=== PATIENT | female | born 1965 | race Asian ===

== ENCOUNTER → 2017-12-01 | Outpatient (CLI) | payer OTHER ==
[~2017-12-01] MED LIST: CHOL100010 PO; CLOB-65 TOP; FLUT0.15; MULTTAB58 PO
--- NOTE | 2017-12-04 07:38 | MAMMOGRAPHY REPORT ---
BILATERAL DIGITAL SCREENING MAMMOGRAM TOMOSYNTHESIS WITH CAD: 12/01/2017 CLINICAL HISTORY: Routine screening. Patient has no complaints. TECHNIQUE: Breast tomosynthesis in addition to standard 2D mammography was performed. Current study was also evaluated with a Computer Aided Detection (CAD) system. COMPARISON: Comparison is made to exam dated: 10/06/2011 mammogram - [facility]. BREAST COMPOSITION: The tissue of both breasts is heterogeneously dense, which may obscure small mas ses. FINDINGS: There is a small cluster of calcifications within the left upper outer breast, for which s pot magnification views are recommended for further evaluation. One of the calcifications demonstrat es possible layering on the MLO view suggesting that the calcifications may represent milk of calcium . The remainder of both breasts are stable compared to the prior exam, without suspicious masses, calci fications, or areas of architectural distortion noted. IMPRESSION: ACR BI-RADS CATEGORY 0: INCOMPLETE EVALUATION: NEED ADDITIONAL IMAGING EVALUATION Left breast calcifications, for which additional imaging evaluation is recommended. The patient will be called to schedule an appointment. Approximately 10% of breast cancers are not detected with mammography. A negative mammographic report should not delay biopsy if a clinically suggestive mass is present. Sahra Paulson M.D. ah/:12/01/2017 09:16:47 Nursing Project Coordinator: Charito DAVIES(Cesar)(Levy), [facility] letter sent: Addl Imaging 0 BI-RADS Code: ACR BI-RADS Category 0: Incomplete Evaluation: Need Additional Imaging Evaluation
== END | disposition home or self-care (01) ==
LOC: C.MAMM 08:26
PROVIDERS: ATTEND Family Medicine
DX: Z12.31 Encounter for screening mammogram for malignant neoplasm of breast (principal); R92.1 Mammographic calcification found on diagnostic imaging of breast

== ENCOUNTER → 2017-12-13 | Outpatient (CLI) | payer OTHER ==
--- NOTE | 2017-12-13 15:24 | MAMMOGRAPHY REPORT ---
UNILATERAL LEFT DIGITAL DIAGNOSTIC MAMMOGRAM: 12/13/2017 CLINICAL HISTORY: 52-year-old woman called back from screening mammography for a new cluster of calci fications in the left upper outer quadrant. TECHNIQUE: Spot magnification left CC and ML views were obtained. COMPARISON: Comparison is made to exams dated: 12/01/2017 mammogram and 10/06/2011 mammogram - [facility]. BREAST COMPOSITION: The tissue of the left breast is heterogeneously dense, which may obscure small masses. FINDINGS: The spot magnification views of the left breast demonstrate a 5 mm grouping of approximatel y 5-7 microcalcifications in the upper outer middle one third of the left breast. On the cc view the y have a somewhat smudgy appearance. On the spot magnification ML view, at least 2 of the calcificat ions demonstrate tea-cupping, suggesting benign milk of calcium. When comparing to the prior availab le 2010 mammogram some of the calcifications are faintly visualized on the CC view, and have a smudgy appearance on that exam as well. No obvious associated mass or architectural distortion. The micro calcifications most likely represent benign milk of calcium, but given the increased conspicuity and not all of the calcifications layer, a short interval follow-up left diagnostic mammogram including s pot magnification views is recommended in 6 months. IMPRESSION: ACR-BI-RADS CATEGORY 3: PROBABLY BENIGN There is an increasingly conspicuous 5 mm cluster of calcifications in the left upper outer quadrant, and some of the calcifications demonstrate tea cupping on the spot magnification ML view suggesting benign milk of calcium. Given the increased conspicuity and the fact that not all of the calcificati ons demonstrate clear flattening or layering, a short interval follow-up left diagnostic mammogram in cluding spot magnification views is recommended to ensure stability in 6 months. These results and recommendations were discussed with the patient and her at the time of the exam. Approximately 10% of breast cancers are not detected with mammography. A negative mammographic report should not delay biopsy if a clinically suggestive mass is present. Monica Styles M.D. ay/:12/13/2017 09:33:51 Nipple Machine Operator: Kerry Oseguera, [facility] letter sent: Follow Up Recommended 3 BI-RADS Code: ACR-BI-RADS Category 3: Probably Benign
== END | disposition home or self-care (01) ==
LOC: C.MAMM 08:30
PROVIDERS: ATTEND Family Medicine
DX: R92.2 Inconclusive mammogram (principal); R92.1 Mammographic calcification found on diagnostic imaging of breast

== ENCOUNTER → 2017-12-20 | Outpatient (CLI) | payer OTHER ==
--- NOTE | 2017-12-20 11:32 | DIAGNOSTIC IMAGING REPORT ---
CHEST 2 VIEWS ROUTINE CLINICAL HISTORY: PALPABLE LYMPH NODE COMPARISON STUDY: No previous studies for comparison. FINDINGS: The heart is normal in size. 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 There is no failure. There is no focal pulmonary consolidation.[There is a 12 mm opacity in the infrahilar region on the lateral view. This is nonspecific but could represent a vascular summation. No corresponding nodule is visualized on the PA film. IMPRESSION: 1. 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 No evidence of focal pulmonary consolidation 3. 12 mm opacity visualized in the lateral view in the infrahilar region. While likely representing a vascular summation, a true nodule cannot be excluded. 4. Given the above-mentioned findings, CT scanning might be considered in follow-up. Electronically signed by: Josue Mitchell M.D. 12/20/2017 11:31 AM Dictated Date/Time: 12/20/2017 11:26 AM
== END | disposition home or self-care (01) ==
LOC: C.RAD1850 11:18
PROVIDERS: ATTEND Obstetrics & Gynecology
DX: R59.9 Enlarged lymph nodes, unspecified (principal)

== ENCOUNTER → 2017-12-20 | Outpatient (CLI) | payer OTHER | END | disposition home or self-care (01) | LOC: C.PAPS 14:13 | PROVIDERS: ATTEND Obstetrics & Gynecology | DX: Z12.4 Encounter for screening for malignant neoplasm of cervix (principal) ==

== ENCOUNTER → 2018-06-13 | Outpatient (CLI) | payer OTHER ==
--- NOTE | 2018-06-13 13:52 | MAMMOGRAPHY REPORT ---
UNILATERAL LEFT DIGITAL DIAGNOSTIC MAMMOGRAM TOMOSYNTHESIS WITH CAD: 06/13/2018 CLINICAL HISTORY: 53-year-old woman presents for follow-up in the left breast with particular attenti on to a conspicuous grouping of probably benign calcifications in the upper outer anterior breast. TECHNIQUE: Left breast CC and MLO 2D and tomosynthesis images, spot magnification left CC and ML view s were obtained. Current study was also evaluated with a Computer Aided Detection (CAD) system. COMPARISON: Comparison is made to exams dated: 12/13/2017 mammogram, 12/01/2017 mammogram, and 1 mammogram - [facility]. BREAST COMPOSITION: The tissue of left breast is heterogeneously dense, which may obscure small tiara s. FINDINGS: The glandular pattern of the left breast is similar to prior mammograms. No new suspicious masses, asymmetries or areas of architectural distortion are seen. There is a grouping of calcifica tions in the upper outer anterior left breast that are somewhat smudgy in the CC projection and demon strate layering in the ML projection, confirming benign milk of calcium. No new suspicious grouping or cluster of calcifications are identified. Recommend return to annual screening mammography schedu le due in November 2018. IMPRESSION: ACR BI-RADS CATEGORY 2: BENIGN The benign calcifications in the upper outer left breast demonstrate layering or tea cupping on the s pot magnification ML view confirming benign milk of calcium. There is no mammographic evidence of ma lignancy in the left breast. Return to annual mammogram screening schedule is recommended.(12/02/2018 ) The patient has been verbally notified of the results. Some breast cancers are not detected with mammography. A negative mammographic report should not david y biopsy if a clinically suggestive mass is present. Monica Styles M.D. ay/:06/13/2018 08:59:39 Contact Center Assistant: RT Alejandra(R)(M), [facility] letter sent: Normal 1/2 BI-RADS Code: ACR BI-RADS Category 2: Benign
== END | disposition home or self-care (01) ==
LOC: C.MAMM 08:32
PROVIDERS: ATTEND Family Medicine
DX: R92.1 Mammographic calcification found on diagnostic imaging of breast (principal)

== ENCOUNTER 2023-01-27 14:17 | Observation (INO) ==
--- NOTE | 2023-01-27 14:53 | Emergency Department Note ---
Impression & Plan Transient global amnesia, Hypokalemia, Elevated blood pressure reading without diagnosis of hypertension ED Provider Note NAME: RENÉE BILL AGE: 57 SEX: F : 1965 ARRIVES VIA: Walk-In INFORMANT: Patient ED PROVIDER(S): Hieu Pina DO CHIEF COMPLAINT: confusion HPI: Patient is a 57-year-old female who presents the ER for confusion. notes that this morning she woke up she was completely fine and in her baseline. Around 9 AM she went outside after eating. He did not catch back up with her until 11 when he noticed that she was confused and did not know what she was doing. She remembers her past but cannot remember today's events. She denies any headache or change in vision. No chest pain or shortness of breath. No nausea, vomiting, or diarrhea. No weakness or numbness in the arms or legs. No other exacerbating or remitting factors. Does have a previous history of a meningioma that was removed via surgery. She saw her PCP and was referred in here today PAST MEDICAL HISTORY:See Below PAST SURGICAL HISTORY:See Below FAMILY HISTORY:See Below SOCIAL HISTORY:See Below HOME MEDICATIONS:See Below ALLERGIES:See Below VITALS:See Below PHYSICAL EXAMINATION: GENERAL: Sitting up in bed, alert, well appearing, well nourished, no distress, non-toxic EYE EXAM: normal conjunctiva. PERRL and EOM's intact. OROPHARYNX: no exudate, no erythema, lips, buccal mucosa, and tongue normal and mucous membranes are moist NECK: supple, no nuchal rigidity, no adenopathy, non-tender LUNGS: Clear to auscultation. Normal chest wall mechanics HEART: no murmurs, S1 normal and S2 normal ABDOMEN: abdomen soft, non-tender, normo-active bowel sounds, no masses, no rebound or guarding. BACK: Back is symmetrical on inspection and there is no deformity, no midline tenderness, no CVA tenderness. SKIN: no rashes and no bruising UPPER EXTREMITIES: upper extremities are grossly normal. LOWER EXTREMITIES: No pitting edema. NEURO EXAM: Oriented to person place and year but difficulty remembering events of earlier today. Recalls history of where she was born as well as other historical dates within the family, cranial nerves II-XII intact, normal speech, no weakness of arms, no weakness of legs. No drift. Finger to nose intact. Gross sensation intact. MEDICAL DECISION MAKING: Patient is a 57-year-old female who was referred in by PCP for the above-stated complaint. IV was established blood work was obtained. Labs show no significant leukocytosis or anemia. INR unremarkable. BMP with mild hypokalemia 3.2. LFTs bilirubin was unremarkable. Troponin negative. TSH unremarkable. COVID-negative. CT angios of the head neck showed no acute p athology. Patient was completely neurologically intact. She does have loss of today's events but does remember everything beyond today. Do favor this most consistent with TGA. external records were reviewed and discussed with her PCP via telephone. Triage Nursing notes reviewed. Limited review of prior medical records performed Vital Signs: reviewed and remarkable for no significant abnormalities Differential diagnosis: Differential diagnoses includes but is not limited to toxic, metabolic, infectious, traumatic, cardiac, neurologic, hematologic, psychiatric and inflammatory etiologies. ER treatment provided: See below Diagnostics interpreted by me include EKG and cardiac monitoring as listed below: -Cardiac Monitoring: An order was placed for continuous cardiac monitoring. The monitor shows a rate of 66 with sinus rhythm. -ECG: Sinus rhythm rate of 68 Normal axis No PVCs QTc 467 -Laboratory studies:Interpreted by me as stated above in MDM and shown below. Imaging studies: Xrays: As interpreted by me: Portable AP upright 1 view of the chest shows no focal trait CTs show: CT angios of the head and neck were negative Consultation(s): As described in MDM Procedures:none Critical Care: None Past Med/Surg History Medical History (Updated 01/27/23 @ 21:08 by Hieu Pina DO) H/O brain tumor surgical removal 18 years ago Surgical History (Updated 01/27/23 @ 17:23 by Heydi Tony PA-C) H/O brain surgery H/O craniotomy supratentorial excision of meningioma H/O partial thyroidectomy H/O: History of hysteroscopy with D&C Family History (Updated 12/21/19 @ 16:24 by Georgina Hernandez) Mother Cancer Denies family history of Ovarian cancer Breast cancer Colorectal cancer Social History (Updated 12/21/19 @ 16:23 by Georgina Hernandez) Smoking Status: Never smoker Second Hand Exposure: Yes; Do You Dip or Chew Tobacco: No; Tobacco Cessation Education Requested by Patient: No Hx Alcohol Use: No Hx Substance Use: No Preferred Language: Mandarin Polish Animal Caretaker Required: No Beliefs That Will Affect Care: None Current Living Situation: Spouse Current Living Situation Comment: Other Information That Helps Us Care for You: No Feels Safe at Home: No Is there a partner from a previous relationship who is making you feel unsafe now?: No Any Concerns about Your Family Situation: No Would You Like to Speak to Someone About Your Situation: No Safety Concerns: Feels Safe At This Time Assistive Devices: Glasses Allergies Allergies Allergy/AdvReac Type Severity Reaction Status Date / Time No Known Allergies Allergy Verified 03/19/19 08:32 Home Meds Home Medications Medication Instructions Recorded Confirmed betamethasone dipropionate 0.05 % topical .Apply a small amount to 12/21/19 12/21/19 topical cream vulva, massage in for 20 seconds. Do this once a week. cholecalciferol (vitamin D3) PO 12/21/19 12/21/19 clobetasol 0.05 % topical ointment topical .Apply small amount to 12/21/19 12/21/19 affected area once daily for two weeks, then twice a week. fluticasone propionate 50 1 sprays intranasal DAILY 12/21/19 12/21/19 mcg/actuation nasal spray,suspension fluticasone propionate 50 intranasal 12/21/19 mcg/actuation nasal spray,suspension multivitamin 1 tab PO DAILY 12/21/19 Results & Data (ED) Vital Signs Vital Signs - 24 hr 01/27/23 14:18 01/27/23 14:38 01/27/23 15:04 Temperature 36.7 C Temperature Source Temporal Artery Scan Pulse Rate 73 60 Pulse Rate [Apical] 66 Pulse Rate from SpO2 Sensor Pulse Rhythm [Apical] Regular Pulse Strength [Apical] Normal Respiratory Rate 20 18 Respiratory Effort / Characteristics Non-Labored Spontaneous Non-Labored Spontaneous Respiratory Depth Normal Normal Respiratory Pattern Regular Blood Pressure 140/82 Blood Pressure [Right Arm] 138/83 Blood Pressure Mean 101 Blood Pressure Mean [Right Arm] 101 Blood Pressure Position [Right Arm] Pulse Oximetry 97 99 Oxygen Delivery Method Room Air Room Air Sepsis Recent Fever Within 48 Hours No Sepsis New/Unexplained Change in Mental Status No Sepsis Action Taken by Nursing No Action Required 01/27/23 15:04 01/27/23 16:58 01/27/23 15:10 Temperature Temperature Source Pulse Rate 62 60 Pulse Rate [Apical] 73 Pulse Rate from SpO2 Sensor 61 60 Pulse Rhythm [Apical] Regular Pulse Strength [Apical] Normal Respiratory Rate 21 17 17 Respiratory Effort / Characteristics Non-Labored Spontaneous Respiratory Depth Normal Respiratory Pattern Regular Blood Pressure Blood Pressure [Right Arm] 138/89 Blood Pressure Mean Blood Pressure Mean [Right Arm] 105 Blood Pressure Position [Right Arm] Lying Pulse Oximetry 100 98 99 Oxygen Delivery Method Room Air Sepsis Recent Fever Within 48 Hours Sepsis New/Unexplained Change in Mental Status Sepsis Action Taken by Nursing 01/27/23 15:20 01/27/23 15:30 01/27/23 15:30 Temperature Temperature Source Pulse Rate 66 65 Pulse Rate [Apical] Pulse Rate from SpO2 Sensor 64 68 Pulse Rhythm [Apical] Pulse Strength [Apical] Respiratory Rate 19 21 Respiratory Effort / Characteristics Respiratory Depth Respiratory Pattern Blood Pressure 141/87 H Blood Pressure [Right Arm] Blood Pressure Mean 105 Blood Pressure Mean [Right Arm] Blood Pressure Position [Right Arm] Pulse Oximetry 100 99 Oxygen Delivery Method Sepsis Recent Fever Within 48 Hours Sepsis New/Unexplained Change in Mental Status Sepsis Action Taken by Nursing 01/27/23 15:50 01/27/23 16:00 01/27/23 16:00 Temperature Temperature Source Pulse Rate 73 70 Pulse Rate [Apical] Pulse Rate from SpO2 Sensor 72 75 Pulse Rhythm [Apical] Pulse Strength [Apical] Respiratory Rate 20 14 Respiratory Effort / Characteristics Respiratory Depth Respiratory Pattern Blood Pressure 120/85 Blood Pressure [Right Arm] Blood Pressure Mean 96 Blood Pressure Mean [Right Arm] Blood Pressure Position [Right Arm] Pulse Oximetry 97 99 Oxygen Delivery Method Sepsis Recent Fever Within 48 Hours Sepsis New/Unexplained Change in Mental Status Sepsis Action Taken by Nursing 01/27/23 16:10 01/27/23 16:20 01/27/23 16:30 Temperature Temperature Source Pulse Rate 76 79 Pulse Rate [Apical] Pulse Rate from SpO2 Sensor 76 78 Pulse Rhythm [Apical] Pulse Strength [Apical] Respiratory Rate 21 18 Respiratory Effort / Characteristics Respiratory Depth Respiratory Pattern Blood Pressure 138/89 Blood Pressure [Right Arm] Blood Pressure Mean 105 Blood Pressure Mean [Right Arm] Blood Pressure Position [Right Arm] Pulse Oximetry 98 98 Oxygen Delivery Method Sepsis Recent Fever Within 48 Hours Sepsis New/Unexplained Change in Mental Status Sepsis Action Taken by Nursing 01/27/23 16:30 01/27/23 16:40 01/27/23 16:50 Temperature Temperature Source Pulse Rate 72 69 71 Pulse Rate [Apical] Pulse Rate from SpO2 Sensor 70 70 75 Pulse Rhythm [Apical] Pulse Strength [Apical] Respiratory Rate 16 20 20 Respiratory Effort / Characteristics Respiratory Depth Respiratory Pattern Blood Pressure Blood Pressure [Right Arm] Blood Pressure Mean Blood Pressure Mean [Right Arm] Blood Pressure Position [Right Arm] Pulse Oximetry 99 98 96 Oxygen Delivery Method Sepsis Recent Fever Within 48 Hours Sepsis New/Unexplained Change in Mental Status Sepsis Action Taken by Nursing 01/27/23 17:00 01/27/23 17:00 01/27/23 17:10 Temperature Temperature Source Pulse Rate 71 80 Pulse Rate [Apical] Pulse Rate from SpO2 Sensor 71 79 Pulse Rhythm [Apical] Pulse Strength [Apical] Respiratory Rate 20 19 Respiratory Effort / Characteristics Respiratory Depth Respiratory Pattern Blood Pressure 150/91 H Blood Pressure [Right Arm] Blood Pressure Mean 110 Blood Pressure Mean [Right Arm] Blood Pressure Position [Right Arm] Pulse Oximetry 97 96 Oxygen Delivery Method Sepsis Recent Fever Within 48 Hours Sepsis New/Unexplained Change in Mental Status Sepsis Action Taken by Nursing Laboratory Data 01/27/23 14:34 01/27/23 14:34 Lab Results 01/27/23 01/27/23 01/27/23 Range/Units 14:34 14:34 14:34 WBC 7.81 (4.8-10.8) K/ul RBC 4.57 (4.20-5.40) M/uL Hgb 13.6 (12.0-16.0) g/dl Hct 40.5 (37.0-47.0) % MCV 88.6 (80.0-100.0) fL MCH 29.8 (25.0-34.0) pg MCHC 33.6 (32.0-36.0) g/dL RDW Std Deviation 41.2 (36.4-46.3) fL RDW Coeff of Ezio 12.7 (11.5-14.5) % Plt Count 232 (130-400) K/uL MPV 9.5 (9.4-12.4) fL Immature Gran % (Auto) 0.1 % Neut % (Auto) 70.8 % Lymph % (Auto) 20.0 % [place] % (Auto) 7.2 % Eos % (Auto) 1.0 % Baso % (Auto) 0.9 % Neut # (Auto) 5.53 (1.40-6.50) K/uL Lymph # (Auto) 1.56 (1.2-3.4) K/uL [place] # (Auto) 0.56 (0.11-0.59) K/uL Eos # (Auto) 0.08 (0-0.50) K/uL Baso # (Auto) 0.07 (0-0.2) K/uL Immature Gran # (Auto) 0.01 (0.01-0.20) K/uL PT 11.4 (9.0-12.0) Seconds INR 1.1 (0.9-1.1) APTT 29.0 (21.0-31.0) Seconds PTT Ratio 1.1 Sodium 140 (136-145) mmol/L Potassium 3.2 L (3.5-5.1) mmol/L Chloride 106 (98-107) mmol/L Carbon Dioxide 29 (21-32) mmol/L Anion Gap 5 (3-11) BUN 10 (6-23) mg/dl Creatinine 0.60 (0.6-1.2) mg/dl Est Cr Clr Drug Dosing 90.4 ml/min Est GFR ( Amer) 118.1 ml/min Est GFR (Non-Af Amer) 101.9 ml/min BUN/Creatinine Ratio 16.7 (10-20) Glucose 86 (70-99(Fasting)) mg/dl POC Glucose (70-99) mg/dl Calcium 9.2 (8.6-10.3) mg/dl Magnesium 2.2 (1.7-2.4) mg/dl Total Bilirubin 1.0 (0.2-1.0) mg/dl AST 36 (13-39) U/L ALT 42 (7-52) U/L Alkaline Phosphatase 59 (34-104) U/L Troponin I High Sens 3.1 (0-14) pg/ml Total Protein 8.0 (6.0-8.3) gm/dl Albumin 4.4 (3.4-5.0) gm/dl Globulin 3.6 (2.5-4.0) gm/dl Albumin/Globulin Ratio 1.2 (0.9-2) TSH (0.300-4.500) uIu/ml SARS-CoV-2, RNA, NAAT (NEGATIVE) 01/27/23 01/27/23 01/27/23 Range/Units 14:34 14:42 15:05 WBC (4.8-10.8) K/ul RBC (4.20-5.40) M/uL Hgb (12.0-16.0) g/dl Hct (37.0-47.0) % MCV (80.0-100.0) fL MCH (25.0-34.0) pg MCHC (32.0-36.0) g/dL RDW Std Deviation (36.4-46.3) fL RDW Coeff of Ezio (11.5-14.5) % Plt Count (130-400) K/uL MPV (9.4-12.4) fL Immature Gran % (Auto) % Neut % (Auto) % Lymph % (Auto) % [place] % (Auto) % Eos % (Auto) % Baso % (Auto) % Neut # (Auto) (1.40-6.50) K/uL Lymph # (Auto) (1.2-3.4) K/uL [place] # (Auto) (0.11-0.59) K/uL Eos # (Auto) (0-0.50) K/uL Baso # (Auto) (0-0.2) K/uL Immature Gran # (Auto) (0.01-0.20) K/uL PT (9.0-12.0) Seconds INR (0.9-1.1) APTT (21.0-31.0) Seconds PTT Ratio Sodium (136-145) mmol/L Potassium (3.5-5.1) mmol/L Chloride (98-107) mmol/L Carbon Dioxide (21-32) mmol/L Anion Gap (3-11) BUN (6-23) mg/dl Creatinine (0.6-1.2) mg/dl Est Cr Clr Drug Dosing ml/min Est GFR ( Amer) ml/min Est GFR (Non-Af Amer) ml/min BUN/Creatinine Ratio (10-20) Glucose (70-99(Fasting)) mg/dl POC Glucose 80 (70-99) mg/dl Calcium (8.6-10.3) mg/dl Magnesium (1.7-2.4) mg/dl Total Bilirubin (0.2-1.0) mg/dl AST (13-39) U/L ALT (7-52) U/L Alkaline Phosphatase (34-104) U/L Troponin I High Sens (0-14) pg/ml Total Protein (6.0-8.3) gm/dl Albumin (3.4-5.0) gm/dl Globulin (2.5-4.0) gm/dl Albumin/Globulin Ratio (0.9-2) TSH 1.530 (0.300-4.500) uIu/ml SARS-CoV-2, RNA, NAAT NEGATIVE (NEGATIVE) Administered Medications Discontinued Medications Gadobutrol (Gadobutrol 65ml Vial) 5.5 ml IV ONCE ONE Stop: 01/27/23 18:33 Last Admin: 01/27/23 18:25 Dose: 5.5 ml Documented By: ANASTASIIA Ioversol (Optiray 320 500ml) 102 ml IV ONCE ONE Stop: 01/27/23 15:40 Last Admin: 01/27/23 15:41 Dose: 102 ml Documented By: JUANCARLOS Potassium Chloride (Potassium Chloride Crtab 20 Meq Tabcr) 40 meq PO NOW STA Stop: 01/27/23 19:44 Last Admin: 01/27/23 20:34 Dose: 40 meq Documented By: TMG Imaging Data Radiologist's Impression: Chest X-Ray 01/27/23 14:25 XR chest 1V portable HISTORY: 57 years-old Female neuro deficit, acute stroke suspected acute strokelike symptoms COMPARISON: Chest radiograph 12/20/2017 TECHNIQUE: AP view of the chest FINDINGS: Cardiac silhouette is upper limits of normal in size. Developmental partial bony fusion of the anterior right first and second ribs. No pneumothorax, pleural effusion, airspace consolidation or pulmonary edema. Bones appear grossly intact. IMPRESSION: No acute process. ACT 112: Negative or not required by law. The above report was generated using voice recognition software. It may contain grammatical, syntax or spelling errors. Electronically signed by: Barney Sandoval M.D. 01/27/2023 3:[address] 01/27/23 14:[address] DOSE: HISTORY: Vision problems. neuro deficit, acute stroke suspected TECHNIQUE: Multiaxial CT images of the head were performed without the use of intravenous contrast. Automated exposure control was utilized for this study. A dose lowering technique was utilized adhering to the principles of ALARA. Comparison: Brain MRI 03/29/2018. Findings: The paranasal sinuses and mastoid air cells are clear. Postoperative changes consistent with prior left frontotemporal craniotomy with an overlying metallic plate. No acute calvarial fractures identified. The orbits are unremarkable. There is no mass, hematoma, midline shift, acute infarct. Encephalomalacia within the left anterior temporal lobe likely due to the postoperative changes. This results in ex vacuo dilatation of the lateral ventricle. Otherwise, the ventricles are normal in size. Impression: 1. No acute infarct or intracranial hemorrhage. 2. Postoperative changes and encephalomalacia identified within the left temporal lobe. This remains unchanged. ACT 112: Negative or not required by law. Electronically signed by: Rafat Centeno M.D. 01/27/2023 3:56 PM Head CTA 01/27/23 14:25 CT angio head w con, CT angio neck with con CLINICAL HISTORY: neuro deficit, acute stroke suspected TECHNIQUE: CT angiography of the head and neck was performed following intravenous administration of iodinated contrast. Coronal and sagittal MIPS were obtained from the axial data set and were submitted for review. Automated dose lowering techniques and/or adjustment according to patient size were utilized for this examination. All measurements were calculated based on NASCET criteria. CT DOSE: 1095.93 mGy.cm Comparison: Comparison is made to CT head 01/27/2023 FINDINGS: Homogeneous enlargement of the left thyroid gland noted. CTA Neck: Right aortic arch is seen with aberrant left subclavian artery. There is no significant atherosclerotic plaque in the aortic arch or the origins of the innominate, left common carotid, and left subclavian arteries. There is narrowing of the cavernous portion of the left internal carotid artery which likely represents a chronic finding. The right vertebral artery is dominant. CTA Head: The anterior and posterior cerebral circulations are patent. No hemodynamically significant stenosis, aneurysm, dissection, or arteriovenous malformation is shown. Left temporal postsurgical changes and encephalomalacia are partially seen. IMPRESSION: 1. Narrowing of the cavernous portion of the left internal carotid artery is likely chronic. 2. No occlusion, hemodynamically significant stenosis, aneurysm, dissection, or arteriovenous malformation in the major intracranial arteries. Assessment of stenosis of the internal carotid arteries is based on NASCET criteria. ACT 112: Negative or not required by law. Electronically signed by: Singh Solorio M.D. 01/27/2023 4:03 PM Neck CTA 01/27/23 14:25 CT angio head w con, CT angio neck with con CLINICAL HISTORY: neuro deficit, acute stroke suspected TECHNIQUE: CT angiography of the head and neck was performed following intravenous administration of iodinated contrast. Coronal and sagittal MIPS were obtained from the axial data set and were submitted for review. Automated dose lowering techniques and/or adjustment according to patient size were utilized for this examination. All measurements were calculated based on NASCET criteria. CT DOSE: 1095.93 mGy.cm Comparison: Comparison is made to CT head 01/27/2023 FINDINGS: Homogeneous enlargement of the left thyroid gland noted. CTA Neck: Right aortic arch is seen with aberrant left subclavian artery. There is no significant atherosclerotic plaque in the aortic arch or the origins of the innominate, left common carotid, and left subclavian arteries. There is narrowing of the cavernous portion of the left internal carotid artery which l ikely represents a chronic finding. The right vertebral artery is dominant. CTA Head: The anterior and posterior cerebral circulations are patent. No hemodynamically significant stenosis, aneurysm, dissection, or arteriovenous malformation is shown. Left temporal postsurgical changes and encephalomalacia are partially seen. IMPRESSION: 1. Narrowing of the cavernous portion of the left internal carotid artery is likely chronic. 2. No occlusion, hemodynamically significant stenosis, aneurysm, dissection, or arteriovenous malformation in the major intracranial arteries. Assessment of stenosis of the internal carotid arteries is based on NASCET criteria. ACT 112: Negative or not required by law. Electronically signed by: Singh Solorio M.D. 01/27/2023 4:03 PM Discharge Plan Visit Data Chief Complaint: Neuro Symptoms/Deficit Stated Complaint: LOSS OF MEMORY ED Provider: Hieu Pina Discharge Problem: Transient global amnesia, Hypokalemia, Elevated blood pressure reading without diagnosis of hypertension Patient Disposition: Admitted As Inpatient Discharge Instructions Interventions: ED Discharge Assessment Last Done: 01/27/23 19:20
[2023-01-27 14:57] LABS: Basophils # (auto) 0.07 K/uL (0-0.2); Basophils % (auto) 0.9 %; Eosinophils # (auto) 0.08 K/uL (0-0.50); Hematocrit (blood only) 40.5 % (37.0-47.0); Hemoglobin 13.6 g/dl (12.0-16.0); Immature Granulocytes # (auto) 0.01 K/uL (0.01-0.20); Immature Granulocytes % (auto) 0.1 %; Lymphocytes # (auto) 1.56 K/uL (1.2-3.4); Mean Corpuscular Hemoglobin 29.8 pg (25.0-34.0); Mean Corpuscular Hgb Conc 33.6 g/dL (32.0-36.0); Mean Corpuscular Volume 88.6 fL (80.0-100.0); Mean Platelet Volume 9.5 fL (9.4-12.4); Monocytes # (auto) 0.56 K/uL (0.11-0.59); Monocytes % (auto) 7.2 %; Neutrophils # (auto) 5.53 K/uL (1.40-6.50); Neutrophils % (auto) 70.8 %; Platelet Count 232 K/uL (130-400); RDW Coefficient of Variation 12.7 % (11.5-14.5); RDW Standard Deviation 41.2 fL (36.4-46.3); Red Blood Count 4.57 M/uL (4.20-5.40); White Blood Count 7.81 K/ul (4.8-10.8)
[2023-01-27 15:14] LABS: Albumin Globulin Ratio 1.2 (0.9-2); Albumin Level 4.4 gm/dl (3.4-5.0); BUN Creatinine Ratio 16.7 (10-20); Calcium 9.2 mg/dl (8.6-10.3); Creatinine Clr Calc Pharmacy 90.4 ml/min; Est GFR (African American) 118.1 ml/min; Est GFR (Non-African American) 101.9 ml/min; Globulin 3.6 gm/dl (2.5-4.0); Magnesium 2.2 mg/dl (1.7-2.4); Potassium 3.2 mmol/L (3.5-5.1)
[2023-01-27 15:19] LABS: Troponin I High Sensitivity 3.1 pg/ml (0-14)
[2023-01-27 15:24] LABS: INR 1.1 (0.9-1.1); Partial Thromboplastin Ratio 1.1; Prothrombin Time 11.4 Seconds (9.0-12.0)
--- NOTE | 2023-01-27 15:25 | XRay Report ---
XR chest 1V portable HISTORY: 57 years-old Female neuro deficit, acute stroke suspected acute strokelike symptoms COMPARISON: Chest radiograph 12/20/2017 TECHNIQUE: AP view of the chest FINDINGS: Cardiac silhouette is upper limits of normal in size. Developmental partial bony fusion of the anteri or right first and second ribs. No pneumothorax, pleural effusion, airspace consolidation or pulmonar y edema. Bones appear grossly intact. IMPRESSION: No acute process. ACT 112: Negative or not required by law. The above report was generated using voice recognition software. It may contain grammatical, syntax o r spelling errors. Electronically signed by: Barney Sandoval M.D. 01/27/2023 3:24 PM
[2023-01-27] MEDS ORDERED: OPTIRAY 320 500ml IV ONE (15:39)
--- NOTE | 2023-01-27 15:58 | CT Scan Report ---
HEAD CT NONCONTRAST CT DOSE: HISTORY: Vision problems. neuro deficit, acute stroke suspected TECHNIQUE: Multiaxial CT images of the head were performed without the use of intravenous contrast. A utomated exposure control was utilized for this study. A dose lowering technique was utilized adheri ng to the principles of ALARA. Comparison: Brain MRI 03/29/2018. Findings: The paranasal sinuses and mastoid air cells are clear. Postoperative changes consistent wit h prior left frontotemporal craniotomy with an overlying metallic plate. No acute calvarial fractures identified. The orbits are unremarkable. There is no mass, hematoma, midline shift, acute infarct. E ncephalomalacia within the left anterior temporal lobe likely due to the postoperative changes. This results in ex vacuo dilatation of the lateral ventricle. Otherwise, the ventricles are normal in size . Impression: 1. No acute infarct or intracranial hemorrhage. 2. Postoperative changes and encephalomalacia identified within the left temporal lobe. This remains unchanged. ACT 112: Negative or not required by law. Electronically signed by: Rafat Centeno M.D. 01/27/2023 3:56 PM
--- NOTE | 2023-01-27 16:04 | CT Scan Report ---
CT angio head w con, CT angio neck with con CLINICAL HISTORY: neuro deficit, acute stroke suspected TECHNIQUE: CT angiography of the head and neck was performed following intravenous administration of iodinated contrast. Coronal and sagittal MIPS were obtained from the axial data set and were submitte d for review. Automated dose lowering techniques and/or adjustment according to patient size were ut ilized for this examination. All measurements were calculated based on NASCET criteria. CT DOSE: 1095.93 mGy.cm Comparison: Comparison is made to CT head 01/27/2023 FINDINGS: Homogeneous enlargement of the left thyroid gland noted. CTA Neck: Right aortic arch is seen with aberrant left subclavian artery. There is no significant at herosclerotic plaque in the aortic arch or the origins of the innominate, left common carotid, and le ft subclavian arteries. There is narrowing of the cavernous portion of the left internal carotid art noman which likely represents a chronic finding. The right vertebral artery is dominant. CTA Head: The anterior and posterior cerebral circulations are patent. No hemodynamically significan t stenosis, aneurysm, dissection, or arteriovenous malformation is shown. Left temporal postsurgical changes and encephalomalacia are partially seen. IMPRESSION: 1. Narrowing of the cavernous portion of the left internal carotid artery is likely chronic. 2. No occlusion, hemodynamically significant stenosis, aneurysm, dissection, or arteriovenous malfor mation in the major intracranial arteries. Assessment of stenosis of the internal carotid arteries is based on NASCET criteria. ACT 112: Negative or not required by law. Electronically signed by: Singh Solorio M.D. 01/27/2023 4:03 PM
--- NOTE | 2023-01-27 17:43 | History & Physical Report ---
Date of Service January 27, 2023 Assessment & Plan (1) Transient global amnesia: Plan: Acute/unstable - Place in observation to monitored bed - NPO until bedside swallow screening completed, if passes, will order regular diet for dinner - NIH Stroke scale q shift - MRI brain w/ and w/o contrast given h/o brain tumor s/p resection - Start ASA 81mg daily - Transthoracic echocardiogram - Lipid panel in AM (2) Hypokalemia: Plan: Acute/unstable - Reviewed CMP, potassium 3.2, replacement has been ordered - Repeat chemistry panel in AM (3) Elevated blood pressure reading without diagnosis of hypertension: Plan: Acute/unstable - Reading of 150/91 mmHg in the ER upon evaluation - Will defer initiation of antihypertensives at this time - could certainly be stress induced - As she is getting a stroke w/u, would allow for some permissive htn in this setting (4) H/O partial thyroidectomy: Plan: Chronic, ?partial thyroidectomy d/t thyroid nodule - Reviewed prior records from PCP but not clearly indicated which thyroid disorder she had - Given partial thyroidectomy and not currently on thyroid replacement, will obtain a TSH with reflex FT4 Plan Above has been discussed with patient and who are in agreement with above plan. Plan has been d/w Dr. Garcia who will also see and evaluate this patient. Further orders will be implemented as warranted. History of Present Illness Chief Complaint: Confused Primary Care Provider: Christophersabrinazackary An is a pleasant 57 yo F who has a history of [place] [facility] [place] to [place] today accompanied by her d/t an episode of confusion this morning. Patient's is providing the history due to language barrier. reports that he went out to work in his garden this morning and when he came back inside, his was acting confused, she was asking him questions including "what am I doing here" and "what was I doing?" He states that he did not feel that this was normal behavior and subsequently brought her into the ER for evaluation. He does not recollect that she had any facial droop or slurred speech. She has no prior h/o stroke and takes no prescribed medication. She also has a h/o partial thyroidectomy as well, I believe this may have been for a solitary thyroid nodule, but per her she takes no thyroid replacement. In the ER, her work up is significant for narrowing of the cavernous portion of the left ICA which is likely chronic and there is no other acute abnormalities. Her potassium is slightly low at 3.2 but no other lab abnormalities are appreciated. She has subsequently been referred to the hospitalist service for admission. Allergies Allergy/AdvReac Type Severity Reaction Status Date / Time No Known Allergies Allergy Verified 03/19/19 08:32 Home Medications Medication Instructions Recorded Confirmed Type betamethasone dipropionate 0.05 % topical .Apply a small amount to 12/21/19 12/21/19 History topical cream vulva, massage in for 20 seconds. Do this once a week. cholecalciferol (vitamin D3) PO 12/21/19 12/21/19 History clobetasol 0.05 % topical ointment topical .Apply small amount to 12/21/19 12/21/19 History affected area once daily for two weeks, then twice a week. fluticasone propionate 50 1 sprays intranasal DAILY 12/21/19 12/21/19 History mcg/actuation nasal spray,suspension fluticasone propionate 50 intranasal 12/21/19 History mcg/actuation nasal spray,suspension multivitamin 1 tab PO DAILY 12/21/19 History Past Med/Surg History Medical History (Updated 01/27/23 @ 17:27 by Heydi Tony PA-C) H/O brain tumor surgical removal 18 years ago Surgical History (Updated 01/27/23 @ 17:23 by Heydi Tony PA-C) H/O brain surgery H/O craniotomy supratentorial excision of meningioma H/O partial thyroidectomy H/O: History of hysteroscopy with D&C Family History (Updated 12/21/19 @ 16:24 by Georgina Hernandez) Mother Cancer Denies family history of Ovarian cancer Breast cancer Colorectal cancer Social History (Updated 12/21/19 @ 16:23 by Georgina Hernandez) Smoking Status: Never smoker Hx Alcohol Use: No Feels Safe at Home: Yes Physical Exam Physical Exam: GENERAL: 57 yo Well-developed, well-nourished F. NAD. LUNGS: Clear to auscultation bilaterally. No w/r/r CARDIOVASCULAR: Regular rate and rhythm. No M/G/R. No JVD. NEUROLOGIC: A&O x3. No focal neurological deficits. CN II-XII grossly intact. PSYCHIATRIC: Cooperative. Appropriate mood and affect. Results & Data Results & Data Vital Signs (Past 12 Hours) Vital Signs Temp Pulse Pulse Resp BP BP Pulse Ox 01/27/23 16:58 73 17 138/89 98 01/27/23 15:04 62 21 100 01/27/23 15:04 60 01/27/23 14:38 66 18 138/83 99 01/27/23 14:18 36.7 C 73 20 140/82 97 O2 Del Method 01/27/23 16:58 Room Air 01/27/23 15:04 01/27/23 15:04 01/27/23 14:38 Room Air 01/27/23 14:18 Room Air Laboratory Results 01/27/23 14:34 01/27/23 14:34 Diagnostic Findings Chest X-Ray 01/27/23 14:25 XR chest 1V portable HISTORY: 57 years-old Female neuro deficit, acute stroke suspected acute strokelike symptoms COMPARISON: Chest radiograph 12/20/2017 TECHNIQUE: AP view of the chest FINDINGS: Cardiac silhouette is upper limits of normal in size. Developmental partial bony fusion of the anterior right first and second ribs. No pneumothorax, pleural effusion, airspace consolidation or pulmonary edema. Bones appear grossly intact. IMPRESSION: No acute process. ACT 112: Negative or not required by law. The above report was generated using voice recognition software. It may contain grammatical, syntax or spelling errors. Electronically signed by: Barney Sandoval M.D. 01/27/2023 3:[address] 01/27/23 14:[address] DOSE: HISTORY: Vision problems. neuro deficit, acute stroke suspected TECHNIQUE: Multiaxial CT images of the head were performed without the use of intravenous contrast. Automated exposure control was utilized for this study. A dose lowering technique was utilized adhering to the principles of ALARA. Comparison: Brain MRI 03/29/2018. Findings: The paranasal sinuses and mastoid air cells are clear. Postoperative changes consistent with prior left frontotemporal craniotomy with an overlying metallic plate. No acute calvarial fractures identified. The orbits are unremarkable. There is no mass, hematoma, midline shift, acute infarct. Encephalomalacia within the left anterior temporal lobe likely due to the postoperative changes. This results in ex vacuo dilatation of the lateral ventricle. Otherwise, the ventricles are normal in size. Impression: 1. No acute infarct or intracranial hemorrhage. 2. Postoperative changes and encephalomalacia identified within the left temporal lobe. This remains unchanged. ACT 112: Negative or not required by law. Electronically signed by: Rafat Centeno M.D. 01/27/2023 3:56 PM Head CTA 01/27/23 14:25 CT angio head w con, CT angio neck with con CLINICAL HISTORY: neuro deficit, acute stroke suspected TECHNIQUE: CT angiography of the head and neck was performed following intravenous administration of iodinated contrast. Coronal and sagittal MIPS were obtained from the axial data set and were submitted for review. Automated dose lowering techniques and/or adjustment according to patient size were utilized for this examination. All measurements were calculated based on NASCET criteria. CT DOSE: 1095.93 mGy.cm Comparison: Comparison is made to CT head 01/27/2023 FINDINGS: Homogeneous enlargement of the left thyroid gland noted. CTA Neck: Right aortic arch is seen with aberrant left subclavian artery. There is no significant atherosclerotic plaque in the aortic arch or the origins of the innominate, left common carotid, and left subclavian arteries. There is narrowing of the cavernous portion of the left internal carotid artery which likely represents a chronic finding. The right vertebral artery is dominant. CTA Head: The anterior and posterior cerebral circulations are patent. No hemodynamically significant stenosis, aneurysm, dissection, or arteriovenous malformation is shown. Left temporal postsurgical changes and encephalomalacia are partially seen. IMPRESSION: 1. Narrowing of the cavernous portion of the left internal carotid artery is likely chronic. 2. No occlusion, hemodynamically significant stenosis, aneurysm, dissection, or arteriovenous malformation in the major intracranial arteries. Assessment of stenosis of the internal carotid arteries is based on NASCET criteria. ACT 112: Negative or not required by law. Electronically signed by: Singh Solorio M.D. 01/27/2023 4:03 PM Neck CTA 01/27/23 14:25 CT angio head w con, CT angio neck with con CLINICAL HISTORY: neuro deficit, acute stroke suspected TECHNIQUE: CT angiography of the head and neck was performed following intravenous administration of iodinated contrast. Coronal and sagittal MIPS were obtained from the axial data set and were submitted for review. Automated dose lowering techniques and/or adjustment according to patient size were utilized for this examination. All measurements were calculated based on NASCET criteria. CT DOSE: 1095.93 mGy.cm Comparison: Comparison is made to CT head 01/27/2023 FINDINGS: Homogeneous enlargement of the left thyroid gland noted. CTA Neck: Right aortic arch is seen with aberrant left subclavian artery. There is no significant atherosclerotic plaque in the aortic arch or the origins of the innominate, left common carotid, and left subclavian arteries. There is narrowing of the cavernous portion of the left internal carotid artery which likely represents a chronic finding. The right vertebral artery is dominant. CTA Head: The anterior and posterior cerebral circulations are patent. No hemodynamically significant stenosis, aneurysm, dissection, or arteriovenous malformation is shown. Left temporal postsurgical changes and encephalomalacia are partially seen. IMPRESSION: 1. Narrowing of the cavernous portion of the left internal carotid artery is likely chronic. 2. No occlusion, hemodynamically significant stenosis, aneurysm, dissection, or arteriovenous malformation in the major intracranial arteries. Assessment of stenosis of the internal carotid arteries is based on NASCET criteria. ACT 112: Negative or not required by law. Electronically signed by: Singh Solorio M.D. 01/27/2023 4:03 PM Supervising Physician Co-Signing Physician Notes Patient seen and examined, chart reviewed, case discussed with Heydi Tony PA-C and I agree with the assessment and plan as above except as otherwise noted Labs and images reviewed Patient is a 57-year-old female who experienced an episode of sudden confusion and disorientation. History is limited by language barrier, translation is available at bedside. Patient has no prior history of stroke and has no focal strength deficits. She is now oriented to place and appears cognitively intact, but with impaired memory from the morning. Given her sudden acute retrograde amnesia but now improving without strokelike deficits suspect that this is likel y transient global amnesia, but agree with completing stroke work-up as noted. MRI pending. Heart rate is regular and patient is without weakness on assessment PG Care Time/CCT Total # of Minutes Spent Total Time Spent with Patient: Total time spent is greater than 50% in coordination of care (as documented) at patient's floor/unit and/or counseling patient: Coding Level of Care Code 81917 INT INP/OBS CARE 3/75MIN Diagnoses Transient global amnesia G45.4 Hypokalemia E87.6 Elevated blood pressure reading without diagnosis of hypertension R03.0 H/O partial thyroidectomy Z98.890
[2023-01-27] MEDS ORDERED: GADOBUTROL 65ML VIAL IV ONE (18:32)
--- NOTE | 2023-01-27 18:50 | Magnetic Resonance Report ---
MR brain wo/w con CLINICAL HISTORY: transient global amnesia, h/o brain tumor TECHNIQUE: Multiplanar and multisequence MR images of the brain were obtained prior to and following administration of gadolinium contrast. Comparison: Comparison is made to MRI brain 03/29/[address] 01/27/2023 FINDINGS: No abnormal restricted diffusion is identified. The white matter is unremarkable. The ventricular sys tem is normal in appearance. Postsurgical changes are seen in the left temporal lobe with associated focal encephalomalacia. Previously noted focus of enhancement in the left cavernous sinus is not seen on today's exam. There is no mass effect or midline shift. There is no evidence of acute intraparenc hymal hemorrhage. No extra axial fluid collections are seen. The corpus callosum, pituitary gland, an d cerebellar tonsils appear grossly unremarkable. Flow voids of the major intracranial arterial vessels are identified. Minimal sinus thickening is see n. IMPRESSION: 1. Postsurgical changes with encephalomalacia seen. 2. Compared to MRI of 2018, the previously noted focus of cavernous sinus enhancement is no longer s een. ACT 112: Negative or not required by law. Electronically signed by: Singh Solorio M.D. 01/27/2023 6:47 PM
[2023-01-27] MEDS ORDERED: MAGNESIUM HYDROXIDE SUSP 30 ML UDC PO PRN (19:43)
[2023-01-27] MEDS ORDERED: POTASSIUM CHLORIDE CRTAB 20 MEQ TABCR PO STA (19:43)
[2023-01-27] MEDS ORDERED: ONDANSETRON INJ 2 MG/ML 2 ML VIAL IV PRN (19:43)
[2023-01-27] MEDS ORDERED: ALUMINUM/MAGNESIUM SUSP 30 ML UDC PO PRN (19:43)
[2023-01-27] MEDS ORDERED: ACETAMINOPHEN 325 MG TAB PO PRN (19:43)
[2023-01-27] MEDS ORDERED: POLYETHYLENE (MIRALAX) 17 GM PACK PO PRN (19:43)
[2023-01-28 06:51] LABS: Basophils # (auto) 0.07 K/uL (0-0.2); Basophils % (auto) 1.4 %; Eosinophils # (auto) 0.16 K/uL (0-0.50); Eosinophils % (auto) 3.1 %; Hematocrit (blood only) 37.7 % (37.0-47.0); Hemoglobin 12.9 g/dl (12.0-16.0); Immature Granulocytes # (auto) 0.01 K/uL (0.01-0.20); Immature Granulocytes % (auto) 0.2 %; Lymphocytes # (auto) 1.58 K/uL (1.2-3.4); Lymphocytes % (auto) 30.7 %; Mean Corpuscular Hemoglobin 30.1 pg (25.0-34.0); Mean Corpuscular Hgb Conc 34.2 g/dL (32.0-36.0); Mean Corpuscular Volume 88.1 fL (80.0-100.0); Mean Platelet Volume 9.9 fL (9.4-12.4); Monocytes # (auto) 0.62 K/uL (0.11-0.59); Neutrophils # (auto) 2.71 K/uL (1.40-6.50); Neutrophils % (auto) 52.6 %; Platelet Count 244 K/uL (130-400); RDW Coefficient of Variation 12.8 % (11.5-14.5); RDW Standard Deviation 40.9 fL (36.4-46.3); Red Blood Count 4.28 M/uL (4.20-5.40); White Blood Count 5.15 K/ul (4.8-10.8)
[2023-01-28 06:57] LABS: BUN Creatinine Ratio 16.4 (10-20); Calcium 8.7 mg/dl (8.6-10.3); Creatinine Clr Calc Pharmacy 98.6 ml/min; Est GFR (African American) 121.5 ml/min; Est GFR (Non-African American) 104.9 ml/min; Magnesium 2.4 mg/dl (1.7-2.4); Potassium 3.6 mmol/L (3.5-5.1)
--- NOTE | 2023-01-28 08:34 | Electrocardiogram Report ---
Test Reason : Blood Pressure : / mmHG Vent. Rate : 068 BPM Atrial Rate : 068 BPM P-R Int : 172 ms QRS Dur : 098 ms QT Int : 440 ms P-R-T Axes : 051 019 040 degrees QTc Int : 467 ms Normal sinus rhythm Incomplete right bundle branch block Borderline ECG No previous ECGs available Confirmed by Salvador Clinton ([id number]) on 01/28/2023 8:33:56 AM Referred By: REFERRED SELF Confirmed By:Salvador Clinton
[2023-01-28] MEDS ORDERED: ASPIRIN 81 MG ECTAB PO SCH (09:00)
--- NOTE | 2023-01-28 10:36 | XCELERA ---
[id number] \\[id number]
--- NOTE | 2023-01-28 10:54 | Discharge Summary ---
Date of Service January 28, 2023 Admission HPI Per Admitting Provider Berny An is a pleasant 57 yo F who has a history of brain tumor s/p resection in 2000 at [facility] [place] presented to the ER today accompanied by her d/t an episode of confusion this morning. Patient's is providing the history due to language barrier. reports that he went out to work in his garden this morning and when he came back inside, his was acting confused, she was asking him questions including "what am I doing here" and "what was I doing?" He states that he did not feel that this was normal behavior and subsequently brought her into the ER for evaluation. He does not recollect that she had any facial droop or slurred speech. She has no prior h/o stroke and takes no prescribed medication. She also has a h/o partial thyroidectomy as well, I believe this may have been for a solitary thyroid nodule, but per her she takes no thyroid replacement. In the ER, her work up is significant for narrowing of the cavernous portion of the left ICA which is likely chronic and there is no other acute abnormalities. Her potassium is slightly low at 3.2 but no other lab abnormalities are appreciated. She has subsequently been referred to the hospitalist service for admission. Admission Exam Per Admitting Provider GENERAL: 57 yo Well-developed, well-nourished F. NAD. LUNGS: Clear to auscultation bilaterally. No w/r/r CARDIOVASCULAR: Regular rate and rhythm. No M/G/R. No JVD. NEUROLOGIC: A&O x3. No focal neurological deficits. CN II-XII grossly intact. PSYCHIATRIC: Cooperative. Appropriate mood and affect. Principal Diagnosis Transient global amnesia Discharge Exam Constitutional: well-appearing, no acute distress CV: regular rhythm, no murmur appreciated, extremities well-perfused, no LE edema Resp: CTABL, no wheezes/rales/rhonchi appreciated, no increased work of breathing Neuro: alert, oriented, no focal neurologic deficit appreciated, CN2-12 grossly intact Discharge Data Allergies Allergy/AdvReac Type Severity Reaction Status Date / Time No Known Allergies Allergy Verified 03/19/19 08:32 Consultations 01/27/23 16:12 ED Decision to Admit Stat Ordered Studies 01/27/23 14:25 CT angio head w con Stat CT angio neck with con Stat CT head/brain wo con Stat 01/27/23 17:17 MRI Brain [MR brain wo/w con] Routine Hospital Course (1) Transient global amnesia: Patient's workup included: Swallow study, passed without issue CT head: no acute process, post-surgical left temporal lobe changes noted, unchanged from prior CTA head/neck: no occlusion, hemodynamically significant stenosis, aneurysm, dissection, or arteriovenous malformation in the major intracranial arteries CXR: no acute process MRI brain: postsurgical changes with encephalomalacia seen Echo: normal LV function, EF 65-70%, mild AR Overall, patient's symptoms were felt to represent transient global amnesia rather that CVA; however, given the concern for possible CVA, patient was started on baby aspirin daily, which patient was instructed to continue until PCP follow-up. Patient was discharged on hospital day two in stable condition. (2) H/O partial thyroidectomy: (3) Elevated blood pressure reading without diagnosis of hypertension: Total Time Total Time Spent Total Time Spent (In Minutes): see attending documentation Discharge Plan Discharge Items Patient Disposition: Home - Self-Care Reason For Visit: TRANSIENT GLOBAL AMNESIA Discharge Diagnosis: Transient global amnesia Activity: Resume your previous activity Non-emergency contact: Primary Care Provider Call non-emergency contact if: your symptoms worsen Follow-up/Referrals: Clint Do [Primary Care Provider] - Diet: Regular Addtl Attending Provider Instructions: You were admitted to the hospital for temporary loss of memory (also known as transient global amnesia). We ran various tests to determine whether or not your symptoms were attributable to a stroke, and the results were very reassuring. We feel it is safe for you to return home. A discharge summary will be sent to your primary care physician to ensure continuity of care. Please bring this discharge summary with you to your next office appointment so that your provider can review it at that time. Follow-up appointments: Make a follow-up appointment with your PCP within the next week. It is very important that you follow up with them shortly after discharge from the hospital. Keep all your follow-up appointments as already scheduled. If you cannot make an appointment, notify your provider. Medications: Your medication list has been reviewed and reconciled upon discharge to ensure accuracy and continuity of care. An updated list of all your medications is included with your hospital discharge paperwork. Please review this list closely, and make note of any changes. * We recommend you start taking a baby aspirin (81mg) daily until you follow up with your primary care provider. If you have any issues filling these prescriptions, please call [phone] and ask to leave a message for Dr. Rashid Chaudhary. Take your medications as instructed; do not skip a dose of your medicines. Make sure all of your doctors know every medicine you are taking (including lxac-kcs-ucajjtn medicines, vitamins, and supplements). Call your primary care provider before taking any new medicines (including yzqb-rxw-cwklhba medicines, vitamins, and supplements), because some of these may interact with your current medications, or may make your symptoms worse. Tell your primary care provider if you cannot afford your medications. CONTACT YOUR PRIMARY CARE PROVIDER if you experience any of the following: Difficulty following your treatment plan, or difficulty taking medications CALL 201 OR GO TO THE EMERGENCY DEPARTMENT if you experience any of the following: Stroke-like symptoms (slurred speech, facial droop, sudden weakness, changes i n visiion) Sudden, severe abdominal pain or nausea/vomiting Severe chest pain, or chest pain that radiates (moves) to your jaw or arm Sudden, severe shortness of breath or difficulty breathing Thank you for allowing us to participate in your care. Pending Studies at Discharge: No Stand-Alone Forms: My [facility] Medications and DC Order Prescriptions: New aspirin 81 mg Tablet,Delayed Release (Dr/Ec) 81 mg PO QAM 30 Days Qty: 30 0RF Continued fluticasone propionate 50 mcg/actuation spray,suspension INTNAS multivitamin Tablet 1 tab PO DAILY betamethasone dipropionate 0.05 % cream TOP .Apply a small amount to vulva, massage in for 20 seconds. Do this once a week. clobetasol 0.05 % ointment TOP .Apply small amount to affected area once daily for two weeks, then twice a week. cholecalciferol (vitamin D3) PO fluticasone propionate 50 mcg/actuation spray,suspension 1 sprays INTNAS DAILY Discharge Orders: Discharge Order (Routine); Ordered 01/28/23 Ordered By: Rashid Chaudhary Admission Data Admit Date/Time: 01/27/23 17:17 Attending Provider: Hieu Day Admit Provider: Antony Garcia Primary Care Provider: Clint Do Other Providers: Antony Garcia Other Interventions: Discharge Summary Assessment (RN) Last Done: 01/28/23 11:59 Supervising Physician Co-Signing Physician Notes I personally examined the patient and verified all lawrence points of history and exam, discussed case, and agree with decision making with Dr Chaudhary Feeling better back to baseline. Discussed working diagnosis, and plan. Feels safe to go home. Vitals noted, in general she is awake and pleasant no distress. Breathing unlabored no accessory muscle use good effort. Skin shows no rashes no pallor or icterus. Otherwise exam as above. CT angio, MRI brain, labs, echocardiogram all noted. Transient global amnesiaextremely low risk for this to have been a cerebrovascular ischemic mechanism. Favor migrainous versus possibly seizurediscussed with patient/ given that this is a low likelihood of happening again, for now makes more sense for watchful waiting given that most TGA episodes do not recur. If it starts to happen again, pursuing things from a seizure perspective may be worthwhile, but at this point it appears that the risks of sedation etc. from an anticonvulsant would far outweigh the benefit given that the cause of the diagnosis is not likely to be seizure, and is more vague/nebulous. No real evidence of reason to suspect cerebrovascular simply because TGA can be cerebrovascular in cause, 81 mg aspirin for now, just to allow time to have her story unfold, PCP follow-up, etc. Safe/stable for home. Resident Activity Tracking Resident Involvement: Resident Care Provided Care Provided: Adult Hospital Medicine
--- NOTE | 2023-01-28 17:32 | Billing Data ---
Date of Service January 28, 2023 Coding Level of Care Code 89972 IN/OBS DISCH 30 MIN/LESS
== END 2023-01-28 12:33 | disposition home or self-care (01) ==
LOC: ED 14:17 → 2S 14:17 → SUATTDRO 17:17 → 2S 19:20